=== PATIENT | female | born 1975 | race Caucasian/White ===

== ENCOUNTER 2016-10-03 01:30 | Emergency (ER) | payer SELFPAY ==
[~2016-10-03] VITALS: Ht 149.9 cm; Wt 68.0 kg
[2016-10-03 01:43] VITALS: BP 155/90
--- NOTE | 2016-10-03 02:02 | NUR ---
PATIENT AMBULATED TO ER BED 5
--- NOTE | 2016-10-03 02:03 | NUR ---
41 Y/O F W/C/O ABCESS BETWEEN BREAST X 2 YEARS BUT STATES GOT BIGGER X 2 WKS AGO. DENIES FEVER OR CHILLS. MED HX DM. NO S/S OF DISTRESS NOTED. ER MD AT BEDSIDE.
[2016-10-03] MEDS ORDERED: LIDOCAINE 1% 500 MG/50 ML VIAL INJ ONE (02:10)
--- NOTE | 2016-10-03 02:27 | NUR ---
Patient noted to have existing wounds upon arrival to ER. Wound covered with dressing. Physician informed.
[2016-10-03 02:57] VITALS: BP 152/99
--- NOTE | 2016-10-03 02:58 | NUR ---
Patient discharged with v/s stable. Written and verbal after care instructions given and explained. Patient alert, oriented and verbalized understanding of instructions. Ambulatory with steady gait. All questions addressed prior to discharge. ID band removed. Patient advised to follow up with PMD. Rx of MOTIN 800MG, BACTRIM DS 800MG BID given. Patient educated on indication of medication including possible reaction and side effects. Opportunity to ask questions provided and answered.
== END 2016-10-03 02:58 | disposition home or self-care (01) ==
LOC: MED 01:30
DX: N61.1 Abscess of the breast and nipple (principal)
CPT/HCPCS: 10060; 90471; 90715; 99283; J2001

== ENCOUNTER 2016-10-07 17:54 | Emergency (ER) | payer SELFPAY ==
[~2016-10-07] VITALS: Ht 154.9 cm; Wt 66.0 kg
[2016-10-07 18:12] VITALS: BP 132/85
--- NOTE | 2016-10-07 18:32 | NUR ---
Patient ambulated to [facility] to be evaluated as fast track by YOLANDA Perez.
--- NOTE | 2016-10-07 18:35 | NUR ---
PATIENT PRESENTS TO ED FOR EVALUATION OF ABSCESS BETWEEN BREASTS . PT STATES SHE'S HAD THE ABSCESS ABOUT 1 WEEK AND IT IS NOW DRAINING PURULENT FLUID . DENIES N/V/D; ABSCESSED AREA NOTED BETWEEN BREASTS, SKIN IS OTHERWISE PINK/WARM/DRY; AAOX4 WITH EVEN AND STEADY GAIT; LUNGS CLEAR BL; HR EVEN AND REGULAR; PT DENIES ANY FEVER, CP, SOB, OR COUGH AT THIS TIME; PATIENT STATES PAIN OF 4/10 AT THIS TIME; VSS; ER MD MADE AWARE OF PT STATUS.
--- NOTE | 2016-10-07 18:45 | NUR ---
[facility] EVALUATING PT IN OVERFLOW.
--- NOTE | 2016-10-07 19:12 | NUR ---
Pt report given to AISHA DANIELLE. Transfer of care at this time.
--- NOTE | 2016-10-07 19:36 | NUR ---
Patient discharged with v/s stable. Written and verbal after care instructions given and explained. Patient verbalized understanding. Ambulatory with steady gait. All questions addressed prior to discharge. Advised to follow up with PMD.PT LEFT AND FORGOT TO SIGN DISCHARGE PAPERWORK
[2016-10-07 19:37] VITALS: BP 129/82
== END 2016-10-07 19:36 | disposition home or self-care (01) ==
LOC: MED 17:54
DX: N61.1 Abscess of the breast and nipple (principal); E11.9 Type 2 diabetes mellitus without complications
CPT/HCPCS: 99283

== ENCOUNTER 2016-10-17 20:53 | Emergency (ER) | payer SELFPAY ==
[~2016-10-17] VITALS: Ht 149.9 cm; Wt 65.8 kg
[2016-10-17 21:35] VITALS: BP 128/71
--- NOTE | 2016-10-18 00:45 | NUR ---
PATIENT TO ER BED 6.
--- NOTE | 2016-10-18 00:50 | NUR ---
PATIENT PRESENTS TO ED WITH WOUND CHECK ON BOIL REMOVED BETWEEN BREAST ON 10/03/16 . PT DENIES N/V/D; SKIN IS PINK/WARM/DRY; AAOX4 WITH EVEN AND STEADY GAIT; LUNGS CLEAR BL; HR EVEN AND REGULAR; PT DENIES ANY FEVER, CP, SOB, OR COUGH AT THIS TIME; PATIENT STATES PAIN OF 8/10 AT THIS TIME; VSS; PATIENT POSITIONED FOR COMFORT; HOB ELEVATED; BEDRAILS UP X2; BED DOWN. ER MD MADE AWARE OF PT STATUS.
--- NOTE | 2016-10-18 01:00 | NUR ---
PATIENT BEING EVALUATED BY DR. CARVALHO.
[2016-10-18 02:01] VITALS: BP 119/76
--- NOTE | 2016-10-18 02:01 | NUR ---
Patient discharged with v/s stable. Written and verbal after care instructions given and explained. Patient verbalized understanding. Ambulatory with steady gait. All questions addressed prior to discharge. Advised to follow up with PMD.
== END 2016-10-18 02:01 | disposition home or self-care (01) ==
LOC: MED 20:53
DX: Z48.01 Encounter for change or removal of surgical wound dressing (principal); E11.9 Type 2 diabetes mellitus without complications; F17.210 Nicotine dependence, cigarettes, uncomplicated
CPT/HCPCS: 82948; 99283

== ENCOUNTER 2020-04-03 16:20 | Emergency (ER) | payer SELFPAY ==
[~2020-04-03] VITALS: Ht 154.9 cm; Wt 73.0 kg
[2020-04-03 16:25] VITALS: BP 137/52
--- NOTE | 2020-04-03 16:27 | NUR ---
Patient ambulated to lobby with steady gait.
--- NOTE | 2020-04-03 17:00 | NUR ---
Pt presents to ED with abscess to left sternal area. Pt states she had abscess drained approx 2 yrs ago. medhx: DM
[2020-04-03] MEDS ORDERED: LIDOCAINE 2% 1000 MG/50 ML VIAL INJ ONE (17:15)
[2020-04-03] MEDS ORDERED: IBUPROFEN 600 MG TAB PO ONE (17:15)
[2020-04-03 17:47] VITALS: BP 120/62
--- NOTE | 2020-04-03 17:47 | NUR ---
Patient discharged with v/s stable. Written and verbal after care instructions given and explained. Patient alert, oriented and verbalized understanding of instructions. Ambulatory with steady gait. All questions addressed prior to discharge. ID band removed. Patient advised to follow up with PMD. Rx of Keflex, Bactrim, Motrin given. Patient educated on indication of medication including possible reaction and side effects. Opportunity to ask questions provided and answered.
== END 2020-04-03 17:47 | disposition home or self-care (01) ==
LOC: MED 16:20
DX: N61.1 Abscess of the breast and nipple (principal)
CPT/HCPCS: 10060; 99283; J2001

== ENCOUNTER 2020-04-07 12:45 | Emergency (ER) | payer SELFPAY ==
[~2020-04-07] VITALS: Ht 152.4 cm; Wt 73.0 kg
[2020-04-07 13:43] VITALS: BP 115/74
--- NOTE | 2020-04-07 16:48 | NUR ---
PATIENT LEFT WITHOUT BEING SEEN BY YOLANDA MATA. NO FURTHER CARE PROVIDED FOR PATIENT.
== END 2020-04-07 16:48 | disposition left against medical advice (07) ==
LOC: MED 12:45
DX: N61.1 Abscess of the breast and nipple (principal); Z53.21 Procedure and treatment not carried out due to patient leaving prior to being seen by health care provider

== ENCOUNTER 2020-04-10 06:23 | Emergency (ER) | payer SELFPAY ==
[~2020-04-10] VITALS: Ht 152.4 cm; Wt 73.0 kg
[2020-04-10 06:29] VITALS: BP 148/78
--- NOTE | 2020-04-10 07:40 | NUR ---
PT TAKEN TO BED 10.
--- NOTE | 2020-04-10 08:01 | NUR ---
Patient discharged with v/s stable. Written and verbal after care instructions given and explained. Patient verbalized understanding. Ambulatory with steady gait. All questions addressed prior to discharge. Advised to follow up with PMD. No nursing care provided in our ER.
== END 2020-04-10 08:01 | disposition home or self-care (01) ==
LOC: MED 06:23
DX: N61.1 Abscess of the breast and nipple (principal); E11.9 Type 2 diabetes mellitus without complications; R03.0 Elevated blood-pressure reading, without diagnosis of hypertension
CPT/HCPCS: 99282